=== PATIENT | male | born 1975 | race Caucasian/White ===

== ENCOUNTER 2018-11-19 08:26 | Emergency (ER) | payer OTHER ==
[2018-11-19 08:32] VITALS: BP 150/88; TEMP 98.3; BMI 25.9
--- NOTE | 2018-11-19 08:49 | ED.PDOC ---
General ED Provider: Dr. ELSY PETERS Chief Complaint: Chest Pain Stated Complaint: left chest discomfort with left arm radiating,apparently sustained Time Seen by Physician: 08:30 Mode of Arrival: Walk-In Information Source: Patient, Family Exam Limitations: No limitations Primary Care Provider: MARCE ENGLISH Nursing and Triage Documentation Reviewed and Agree: Yes Does patient meet sepsis criteria?: No System Inflammatory Response Syndrome: Not Applicable Sepsis Protocol: For patient's 13 years and over: Temp is 96.8 and below OR 101 and greater Pulse >90 BPM Resp >20/minute Acutely Altered Mental Status Are patient's symptoms suggestive of a new infection, such as: -Pneumonia -Skin, Soft Tissue -Endocarditis -UTI -Bone, Joint Infection -Implantable Device -Acute Abdominal Infection -Wound Infection -Meningitis -Blood Stream Catheter Infection -Unknown Cardiovascular Complaint Exam - Chest Pain Complaint/Exam Duration: today Symptoms Are: Still present Timing: Constant Length of Chest Pain Episodes: approx 1 day Initial Severity: Mild Current Severity: Mild Location: Reports: Left lateral Pain Radiates: Reports: Left shoulder Character: Reports: Aching Aggravating: Reports: None Alleviating: Reports: Rest Associated Signs and Symptoms: Reports: Diaphoresis Related History: Reports: Similar episode Related Surgical History: Reports: None History of Healthcare-Acquired Pneumonia: Reports: No AMI/ACS Risk Factors: Reports: Smoking TAD Risk Factors: Reports: Hypertension Pulmonary Embolism Risk Factors: Reports: Smoking Prior Care for this Complaint: No Recent Stress Test: No Recent Echo/LV Function: No JVD Present: No Subcutaneous Emphysema Present: No Diminshed Breath Sounds: No Reproducible Chest Wall Pain: No Unequal Pulses Noted: No If Risk Factors for AMI/ACS Consider: EKG, Cardiac Enzymes If Risk Factors for PE Consider: Chest CT with contrast If Risk Factors for TAD Consider: Chest CT with contrast, Blood pressure control Documents Reviewed: Other Differential Diagnoses: Acute KS, Unstable Angina, Aortic Aneurysm, Chest Wall Pain, GI Diseasae, Pulmonary Embolism Quality Indicators For Acute KS or Cardiac Chest Pain: EKG in 10min. Review of Systems - Review Of Systems Constitutional: Reports: No symptoms Eyes: Reports: No symptoms Ears, Nose, Mouth, Throat: Reports: No symptoms Respiratory: Reports: Other Cardiac: Reports: Other GI: Reports: No symptoms : Reports: No symptoms Musculoskeletal: Reports: No symptoms Skin: Reports: No symptoms Neurological: Reports: No symptoms Endocrine: Reports: No symptoms Hematologic/Lymphatic: Reports: No symptoms All Other Systems: Reviewed and Negative Past Medical History - Past Medical History Previously Healthy: Yes Endocrine: Reports: Unknown Cardiovascular: Reports: Other Respiratory: Reports: None Hematological: Reports: None Gastrointestinal: Reports: None Genitourinary: Reports: None Neuro/Psych: Reports: None Musculoskeletal: Reports: None Cancer: Reports: None - Surgical History General Surgical History: Reports: Adenoidectomy - Family History Family History: Reports: None - Social History Smoking Status: Current every day smoker Hx Substance Use: No Alcohol Screening: Occasionally Physical Exam - Physical Exam Appearance: Well-appearing Ill-appearing: None Pain Distress: None Eyes: SUSAN ENT: Ears normal Neck: Supple Respiratory: Airway patent Cardiovascular: Bradycardia GI/: Soft Musculoskeletal: Normal strength Skin: Warm Neurological: Sensation intact Psychiatric: Affect appropriate Critical Care Note - Critical Care Note Total Time (mins): 0 Course - Course Hematology/Chemistry: 11/19/18 08:50 11/19/18 08:50 Orders, Labs, Meds: Lab Review 11/19/18 11/19/18 08:50 08:50 WBC 7.37 RBC 4.24 L Hgb 13.7 L Hct 40.3 L MCV 95.0 H MCH 32.3 H MCHC 34.0 RDW Coeff of Jack 12.7 Plt Count 272 Immature Gran % (Auto) 0.3 Neut % (Auto) 48.0 Lymph % (Auto) 36.5 [place] % (Auto) 12.1 H Eos % (Auto) 2.2 Baso % (Auto) 0.9 Immature Gran # (Auto) 0.0 Neut # (Auto) 3.5 Lymph # (Auto) 2.7 [place] # (Auto) 0.9 Eos # (Auto) 0.2 Baso # (Auto) 0.1 Sodium 139.7 Potassium 4.04 Chloride 107.0 Carbon Dioxide 25.1 Anion Gap 11.64 BUN 13.3 Creatinine 0.71 Estimated GFR (MDRD) 121.00 BUN/Creatinine Ratio 18.73 Glucose 105.0 Calcium 9.29 Total Bilirubin 0.53 AST 23.5 ALT 16.7 Alkaline Phosphatase 67.5 Total Creatine Kinase 178.1 H CK-MB (CK-2) 1.430 CK-MB (CK-2) % 0.8000 Troponin I < 0.012 Total Protein 7.16 Albumin 4.08 Globulin 3.08 Albumin/Globulin Ratio 1.32 Orders Category Date Time Status EKG-(ED ONLY) Stat CARDIO 11/19/18 08:47 Completed NPO REMINDER: IMAGING ONCE CARE 11/19/18 08:57 Active ED IV/MEDIPORT/POWERPORT .ONCE EMERGENCY 11/19/18 08:59 Active Monitor [ED LABORATORY APPARATUS GLASS GRINDER APPLIED] .ONCE EMERGENCY 11/19/18 09:01 Active CBC W/ AUTO DIFF Stat LAB 11/19/18 08:50 Completed COMPREHENSIVE METABOLIC PANEL Stat LAB 11/19/18 08:50 Completed CREATINE KINASE Stat LAB 11/19/18 08:50 Completed TROPONIN I Stat LAB 11/19/18 08:50 Completed 0.9 % Sodium Chloride [Saline Flush] MEDS 11/19/18 08:59 Active 1 syr IVF PRN PRN Aspirin [Aspirin Chewable] MEDS 11/19/18 09:02 Discontinued 81 mg PO ONCE STA Ibuprofen [Motrin] MEDS 11/19/18 09:08 Discontinued 600 mg PO ONCE STA Mag-Al Plus//Lidocaine [Gi Cocktail] MEDS 11/19/18 09:15 Discontinued 30 ml PO ONCE STA Sodium Chloride 0.9% [Sodium Chloride] 1,000 ml MEDS 11/19/18 09:06 Active IV 125 mls/hr CT CHEST PE PROTOCOL Stat RADS 11/19/18 08:56 Completed Medications Generic Name Dose Route Start Last Admin Trade Name Freq PRN Reason Stop Dose Admin Sodium Chloride 1,000 mls @ 125 mls/hr 11/19/18 09:06 11/19/18 09:15 Sodium Chloride IV 11/19/18 17:05 125 mls/hr .Q8H STA Administration Sodium Chloride 1 syr 11/19/18 08:59 11/19/18 09:15 Saline Flush IVF 1 syr PRN PRN Administration To flush IV Discontinued Medications Generic Name Dose Route Start Last Admin Trade Name Freq PRN Reason Stop Dose Admin Al Hydroxide/Mg Hydroxide 30 ml 11/19/18 09:15 11/19/18 09:26 Gi Cocktail PO 11/19/18 09:16 30 ml ONCE STA Administration Aspirin 81 mg 11/19/18 09:02 11/19/18 09:26 Aspirin Chewable PO 11/19/18 09:03 81 mg ONCE STA Administration Ibuprofen 600 mg 11/19/18 09:08 11/19/18 09:26 Motrin PO 11/19/18 09:09 600 mg ONCE STA Administration Vital Signs: Temp Pulse Resp BP Pulse Ox 11/19/18 08:27 98.3 F 59 L 20 150/88 H 99 YARON Risk Score YARON Risk Score: Risk Score Odds of by 30D 0 0.1 (0.1-0.2) 1 0.3 (0.2-0.3) 2 0.4 (0.3-0.5) 3 0.7 (0.6-0.9) 4 1.2 (1.0-1.5) 5 2.2 (1.9-2.6) 6 3.0 (2.5-3.6) 7 4.8 (3.8-6.1) Departure - Departure Time of Disposition: 12:29 Disposition: HOME SELF-CARE Discharge Problem: Bradycardia with 41-50 beats per minute Instructions: Bradycardia (ED) Condition: Good Pt referred to PMD for follow-up: Yes IPMP verified?: No Allergies/Adverse Reactions: Allergies No Known Allergies Allergy (Unverified 01/19/16 14:03) Home Medications: Ambulatory Orders 1 [No Reported Medications] 11/19/18 Disposition Discussed With: Patient, Family
[2018-11-19] MEDS: SODIUM CHLORIDE 1,000 ML IV STA (09:15)
[2018-11-19] MEDS: MOTRIN PO STA (09:26)
[2018-11-19] MEDS: GI COCKTAIL PO STA (09:26)
[2018-11-19] MEDS: ASPIRIN CHEWABLE PO STA (09:26)
--- NOTE | 2018-11-19 10:26 | CT ---
EXAM: CTA of the chest. History: Left-sided chest pain. Comparison: Chest radiograph 09/02/2012 Technique: Multiplanar CT images through the thorax were obtained following administration of IV con trast. MIP images and 3-D reconstructions were also acquired. Findings: Heart size is normal. No pericardial effusion. No thoracic aortic aneurysm. No pulmonar y arterial filling defects. No pathologically enlarged lymph nodes. No consolidation. No pleural f luid and no pneumothorax. Mild biapical lung scarring. Mild diffuse bronchial wall thickening. Mil d paraseptal emphysema within the upper lungs. No suspicious lung masses or lung nodules. Within the visualized upper abdomen, no acute findings. Small cyst within the left hepatic lobe. No acute osseous abnormalities. Impression: 1. No pulmonary embolism. 2. Mild diffuse bronchial wall thickening but no consolidated pneumonia. 3. Mild upper lobe predominant paraseptal emphysema
== END 2018-11-19 12:52 | disposition home or self-care (01) ==
LOC: ED 08:26
DX: R00.1 Bradycardia, unspecified (principal); R07.9 Chest pain, unspecified; I10 Essential (primary) hypertension; F17.210 Nicotine dependence, cigarettes, uncomplicated
CPT/HCPCS: 36415; 80053; 82550; 82553; 84484; 85025; 93005; 93010; 96360; 96361; 99283

== ENCOUNTER 2018-11-24 14:17 | Outpatient (CLI) ==
--- NOTE | 2018-11-24 18:07 | US ---
EXAM: Carotid ultrasound HISTORY: Dizziness COMPARISON: None TECHNIQUE: Carotid ultrasound was performed using Duplex imaging with martinez scale, color, and Doppler imaging performed. FINDINGS: Right carotid: There is no significant visualized area of atherosclerotic narrowing. Peak systolic velocity measurement in the right internal carotid artery is 0.84 meters per second. End-diastolic v elocity measurement in the right internal carotid artery is 0.37 meters per second. Right internal t o common carotid artery peak systolic velocity ratio is 0.8. Flow in the right vertebral artery is a ntegrade. Left carotid: There is no significant visualized area of atherosclerotic narrowing. Peak systolic v elocity measurement in the left internal carotid artery is 0.65 meters per second. End-diastolic arcenio ocity measurement in the left internal carotid artery is 0.33 meters per second. Left internal to co mmon carotid artery peak systolic velocity ratio measures 0.6. Flow in the left vertebral artery is antegrade. IMPRESSION: 1. Right internal carotid: No hemodynamically second stenosis 2. Left internal carotid: No hemodynamically significant stenosis
== END 2018-11-24 14:18 | disposition home or self-care (01) ==
LOC: RAD 14:17
PROVIDERS: ATTEND Nurse Practitioner Family
DX: R00.2 Palpitations (principal); R06.02 Shortness of breath; D64.9 Anemia, unspecified; R42 Dizziness and giddiness

== ENCOUNTER 2018-11-27 06:43 | Outpatient (CLI) ==
--- NOTE | 2018-11-30 10:13 | ECHO2D ---
Date of Exam: 11/27/18 Ordering Physician: IRAIDA CALI APRN Room #: OP Reason for Echo: SOB M-Mode Normal Adult Results LV Dimensions Normal Adult Results AoV Opening excursions >1.6 >1.6 LVEDD-base- 3.5-5.8 4.2 Ao root dimensions 2.0-3.7 3.4 LVESD-base- 3.1-4.6 L. Atrium dimensions 1.9-3.8 3.9 Post. Wall thickness 0.8-1.1 1.1 IV septum (thickness) 0.7-1.2 1.1 Post. Wall excursion 0.72-1.3 NORMAL Septal motion NORMAL Systolic motion R. Ventricular cavity 1.5-2.0 NORMAL LVEF 60% 62% Paradoxical septal wall motion NORMAL 2-D : 2-D M Mode Echocardiogram was performed using apical four chamber and left parasternal long and short axis views. Mitral, tricuspid and aortic valves appear to be normal. Contractility of the left ventricle seems to be normal, so is the cavity size. Left atrial cavity size and aortic root appear to be normal. There is no pericardial effusion. There is no thrombus noted in the left ventricular or left aortic cavity. No mitral valve prolapse noted. M-MODE: MV: NORMAL AV: NORMAL TV: NORMAL PV: CHAMBER SIZE: NORMAL WALL MOTION: NORMAL PERICARDIUM: NORMAL INTERPRETATION: 1. NORMAL 2 "D" "M" MODE ECHO MTDD
== END 2018-11-27 06:44 | disposition home or self-care (01) ==
LOC: CAR 06:43
PROVIDERS: ATTEND Nurse Practitioner Family
DX: R07.9 Chest pain, unspecified (principal); R00.2 Palpitations; R06.02 Shortness of breath
CPT/HCPCS: 93005; 93010

== ENCOUNTER 2018-11-30 06:55 | Outpatient (CLI) ==
--- NOTE | 2018-11-30 09:29 | STRESSECHO ---
Date of Test: 11/30/18 Ordering Physician: IRAIDA CALI APRN Medical History : SOB, ANEMIA, DIZZINESS, PALPITATIONS Smoking History: 1 PK/DAY Height: 69" Weight: 162 LBS Current Medications: ZANTAC, IBUPROFEN Resting EKG: SINUS RHYTHM/ NO ACUTE CHANGES Target Heart Rate: 150/177 S-T SEGMENT STAGE MPH/GRADE HEART RATE BPM BLOOD PRESSURE MMHG RHYTHM +/- ELEVATION DEPRESSION SYMPTOMS AT REST 53 BPM 114/62 MMHG SR X NONE 1 1.7/10% 100 BPM 128/72 MMHG SR X NONE 2 2.5/12% 126 BPM 130/70 MMHG SR X NONE 3 3.4/14% 4 4.2/16% 5 5.0/18% Immediately After 151 BPM SR X NONE Minutes Post Exercise 5:00 68 BPM 120/60 MMHG SR X SHORT OF AIR Minutes Post Exercise DURATION OF EXERCISE: 7:37 MAXIMUM HEART RATE REACHED: 151 BPM REASON FOR TERMINATION: SHORT OF AIR 99% OXYGEN SATURATION WITH EXERCISE ON ROOM AIR METS 10.1 INTERPRETATION: 1. NO EVIDENCE OF ISCHEMIA BY ST-T WAVE 2. NO CHEST PAIN OR CHEST DISCOMFORT 3. BLOOD PRESSURE RESPONSE: NORMAL AT REST AND WITH EXERCISE 4. NO ARRHYTHMIAS NORMAL LEFT VENTRICULAR CONTRACTILITY--RESTING AND POST EXERCISE MTDD
--- NOTE | 2018-11-30 09:33 | ECHOSTRESS ---
Date of Exam: 11/30/18 Ordering Physician: IRAIDA CALI APRN Reason for Echo: SOB, PALPITATIONS, STRESS TEST--NO ISCHEMIA M-Mode Normal Adult Results LV Dimensions Normal Adult Results AoV Opening excursions >1.6 LVEDD-base- 3.5-5.8 Ao root dimensions 2.0-3.7 LVESD-base- 3.1-4.6 L. Atrium dimensions 1.9-3.8 Post. Wall thickness 0.8-1.1 IV septum (thickness) 0.7-1.2 Post. Wall excursion 0.72-1.3 Septal motion Systolic motion R. Ventricular cavity 1.5-2.0 LVEF 60% Paradoxical septal wall motion 2-D: NORMAL LEFT VENTRICULAR CONTRACTILITY--RESTING AND POST EXERCISE M-MODE: MV: AV: TV: PV: CHAMBER SIZE: WALL MOTION: NORMAL LEFT VENTRICULAR CONTRACTILITY--RESTING AND POST EXERCISE PERICARDIUM: INTERPRETATION: 1. NORMAL LEFT VENTRICULAR CONTRACTILITY--RESTING AND POST EXERCISE MTDD
== END 2018-11-30 06:56 | disposition home or self-care (01) ==
LOC: CAR 06:55
PROVIDERS: ATTEND Nurse Practitioner Family
DX: R00.2 Palpitations (principal); R06.02 Shortness of breath; D64.9 Anemia, unspecified; R42 Dizziness and giddiness

== ENCOUNTER 2018-12-03 12:49 | Outpatient (CLI) | END 2018-12-03 12:50 | disposition home or self-care (01) | LOC: CAR 12:49 | PROVIDERS: ATTEND Nurse Practitioner Family | DX: R00.2 Palpitations (principal); R06.02 Shortness of breath; D64.9 Anemia, unspecified; R42 Dizziness and giddiness ==

== ENCOUNTER 2018-12-04 12:42 | Outpatient (CLI) ==
--- NOTE | 2018-12-07 09:18 | HOLTER ---
PATIENT INFORMATION AND COMMENTS Attending Physician: IRAIDA CALI APRN Indications: CHEST PAIN, SOB __ Patient Medications: ZANTAC, IBUPROFEN __ Pre-procedure Summary: Protocol: Standard Heart Rate Started: 12/04/18 1259 Minimum: 38 BPM Weight: 162 LBS Ended: 12/05/18 1233 Maximum: 140 BPM Height: 67" Duration: 23 HOURS 34 MIN Average: 67 BPM _ INTERPRETATIONS/OBSERVATIONS: 1. BASIC RHYTHM: SINUS, RATE 38 BPM TO 120 BPM, AVERAGE 67 BPM 2. RARE TO INFREQUENT ISOLATED PAC'S AND PVC'S 3. NO PAUSES GREATER THAN 2.[address]-T WAVE CHANGES FROM BASELINE 5. ACTIVITY LOG NOT MAINTAINED MTDD
== END 2018-12-04 12:43 | disposition home or self-care (01) ==
LOC: CAR 12:42
PROVIDERS: ATTEND Nurse Practitioner Family
DX: R07.9 Chest pain, unspecified (principal); R00.2 Palpitations; R06.02 Shortness of breath
CPT/HCPCS: 93227